=== PATIENT | male | born 1965 | race Caucasian/White ===

== ENCOUNTER 2016-07-06 06:14 | Emergency (ER) | payer SELFPAY ==
--- NOTE | 2016-07-06 18:58 | ER ---
ADMIT: 07/06/2016 RM/LOC: ER [facility] MR#: [id number] [address] [id number] ANNI CONLEY [address] [place] [id number] *[facility] Emergency Room Report SEX: M AGE: 51 : 1965 DATE: 07/06/2016 The patient is a 51-year-old male, new to the area, stumbled playing Frisbee 2 days ago landing on his right arm against his ribs. States he has pain on the lateral ribs. No hemoptysis, hematuria, or shortness of breath. Exam remarkable for nontoxic, afebrile male, exquisitely tender right lateral ribs. No contusion noted. Abdomen; obese, nontender. Chest x-ray confirms right posterior 8th and 9th rib fractures with no pneumothorax. Treated with Toradol 60 mg IM with marked improvement of pain, rib belt 12/24 hours, tramadol 50 mg one to two t.i.d. p.r.n. #20 plus #6. May add ibuprofen and Tylenol as needed. Follow up with Dr. Singh as needed. The patient did have brief vasovagal episode shortly after being instructed on incentive spirometry. Mikael Gould MD/ denis JOB #: [id number] CC: Mikael Gould MD, Attending Physician Parmjit Singh MD
== END 2016-07-06 07:01 | disposition home or self-care (01) ==
LOC: ER 06:14
DX: S22.41XA Multiple fractures of ribs, right side, initial encounter for closed fracture (principal); R55 Syncope and collapse; E66.9 Obesity, unspecified; Z88.5 Allergy status to narcotic agent; W01.0XXA Fall on same level from slipping, tripping and stumbling without subsequent striking against object, initial encounter; Y93.74 Activity, frisbee; Y92.830 Public park as the place of occurrence of the external cause; Y99.8 Other external cause status